=== PATIENT | female | born 1995 | race American Indian/Alaskan Native ===

== ENCOUNTER 2019-02-12 21:00 | Inpatient (IN) | payer OTHER ==
[~2019-02-12] VITALS: Ht 167.6 cm; Wt 74.3 kg
[2019-02-12 21:20] VITALS: BP 132/86
[2019-02-12] MEDS ORDERED: PRENTAB55 PO (21:26)
[2019-02-12] MEDS ORDERED: LACTATED RINGER'S 1000 ML IV STA (23:28)
[2019-02-12] MEDS ORDERED: PENICILLIN G POTASSIUM IV 5 MU in D5W MINI-BAG PLUS 100 ML IV STA (23:28)
[2019-02-12 23:34] VITALS: BP 146/92
--- NOTE | 2019-02-12 23:39 | NUR ---
Obstetrical History & Physical General Date of Admission Feb 12, 2019 at 23:32 History of Present Illness Sharon is a 23 y/o G1 at 38+6 weeks via 13+3 week US who presents for progressively strong and frequent ctx since 1900 earlier this evening. She reports + bloody show, endorses excellent FM and denies LOF. Preg c/b RH neg-received RhoGAM at 28 weeks and GBS + carrier. Chief Complaint: CTX, term Information Provided By: Patient Dating Final EDC by: US at 13+3 weeks Past Medical History Past Obstetrical History : Past Obstetrical History: G1 Type of Delivery: [employer] COORDINATOR History: No pertinent history Past Medical History Medical History: denies Surgical History: denies Family History Significant Family History: No pertinent family hx Social History Marital Status: Family situation: Spouse/partner home Psychosocial History: No pertinent psych hx * Smoker: non-smoker Alcohol: denies Drugs: denies Abuse Violence Screening Have you been hit/kicked/slapp: No Have you been sexually assault: No Imunizations Tdap status: current Allergies Coded Allergies: NKDA Physical Examination Physical Examination GENERAL: Alert and oriented times three. PUL: CTAB CV: RRR ABDOMEN: Gravid and non-tender to touch. FETUS: Is vertex (VTX) by sterile vaginal examination (SVE), 5/80/-2, vtx well applied, BBOW EXTREMITIES: No edema. Laboratory Data LABS-pending in [place] Pertinent Laboratoy Data Blood Type: 0- RBC Antibody Screen: Negative HIV: Negative Hepatitis B: Negative Hepatitis C: Unknown Rapid Plasma Reagin: Nonreactive Rubella: Immune Varicella: Immune Chlamydia/Gonorrhea: Negative Group B Streptococcus: Positive Quad Screen Test: Unknown Cystic Fibrosis: Unknown Glucose Tolerance Test: 92 Anatomy Ultrasound Placenta Location: Anterior Normal Anatomy: Yes Placenta Previa: No Assessment Variability: Moderate Accelerations: Positive Decelerations: None Tocometer Contractions: No Assessment/Plan Assessment 23 y/o G1 at 38+6 weeks via 13+3 week US. Uncomplicated . Active phase labor. CAT 1 FHR. GBS +. Plan Admit and orient. Bid Clerk and consent. Diet: clears Group B Streptococcus (GBS) pos, PCN per SOP Labs and intravenous (IV) per unit protocol. Lactated Ringers (LR): 125 mL/hr. Anticipate normal spontaneous delivery () MEHDI per patient request for labor anesthesia.
[2019-02-13] VITALS (27 sets, daily range): BP systolic 110–162; BP diastolic 59–101
[2019-02-13 00:23] LABS: HEMATOCRIT 39.7 % (36.0-47.0); HEMOGLOBIN 13.7 g/dl (12.0-15.5); MEAN CORPUSCULAR HEMOGLOBIN 31.7 pg (27.0-33.0); MEAN CORPUSCULAR HGB CONC 34.5 g/dl (32.0-36.5); MEAN CORPUSCULAR VOLUME 91.9 fl (80.0-96.0); PLATELET COUNT, AUTOMATED 217 10^3/uL (150-450); RED BLOOD COUNT 4.32 10^6/uL (4.00-5.40); WHITE BLOOD COUNT 14.8 10^3/uL (4.0-10.0)
[2019-02-13] MEDS ORDERED: FENTANYL 2MCG/ML ROPIVACAINE 0.2% IN 0.9% NACL 100ML IVBAG As Ordered ONE (00:34)
[2019-02-13] MEDS: LR 1,000 ML IV SCH ×2 (01:12→06:30)
[2019-02-13] MEDS ORDERED: ONDANSETRON 4MG/2ML VIAL (J2405) IV PRN ×2 (01:15→08:30)
[2019-02-13] MEDS ORDERED: ePHEDrine SULFATE 25 MG/5 ML(5MG/ML) SYRINGE IV PRN (01:15)
[2019-02-13] MEDS ORDERED: NALOXONE INJ 0.4 MG/1 ML VIAL (J2310) IV PRN (01:15)
[2019-02-13] MEDS ORDERED: diphenhydrAMINE INJ 50MG/ML VIAL (J1200) IV PRN (01:15)
[2019-02-13] MEDS ORDERED: REFRIGERATOR IV KEYS XX PRN (01:15)
[2019-02-13] MEDS ORDERED: FENTANYL/ROPIVACAINE/NACL BAG 100 ML EPIDURAL SCH (01:15)
[2019-02-13] MEDS ORDERED: EPIDURAL COMMENT XX SCH (01:15)
[2019-02-13] MEDS ORDERED: LACTATED RINGER'S 1000 ML IV PRN (01:15)
[2019-02-13] MEDS ORDERED: EPIDURAL/PCA KEYS XX PRN (01:15)
[2019-02-13] MEDS ORDERED: PENICILLIN G POTASSIUM IV 2.5 MU in APPROPRIATE DILUENT 1 EA IV SCH (04:00)
--- NOTE | 2019-02-13 05:15 | NUR ---
S: CNM to bs for re-assessment. Pt resting on right side w/ eyes closed and peanut ball. Spouse present at bs. Pt denies questions/concerns regarding labor and possible augmentation with oxytocin. She denies pain since MEHDI placement. O: VSS/AF A&Ox3, NAD; coping well ABD: Gravid; relaxed uterine resting tone EXT: neg homans FHR: 130, moderate variability, + accelerations, no accelerations prior to AROM; one variable following amniotomy. TOCO: ctx of mild-mod intensity q 2-5minutes; irregular pattern SCE: 6/100/-1,vtx, BBOW-amniotomy with clear fluid noted A/P: This is a 23 y/o G1 at 39 weeks via 13 week US. Protracted active phase of labor. CAT I FHR w/ times of intermittent CAT II for minimal variability/variable decel. Amniotomy performed for labor augmentation. May further augment with oxytocin as needed. GBS + and 2 doses of PCN prophylaxis has been administered. Safe to proceed. I anticipate today.
[2019-02-13] MEDS ORDERED: OXYTOCIN 30 UNITS IN 0.9% NaCl 500ML IV BAG (J2590) As Ordered ONE (06:34)
[2019-02-13] MEDS ORDERED: OXYTOCIN DRIP 30 UNITS in APPROPRIATE DILUENT 1 EA IV SCH (08:20)
[2019-02-13] MEDS ORDERED: MEASLES,MUMPS,RUBELLA VACCINE INJ (MMR-II) (90707) SC SCH (08:30)
[2019-02-13] MEDS ORDERED: METHYLERGONOVINE MALEATE 0.2 MG TAB PO PRN (08:30)
[2019-02-13] MEDS ORDERED: ACETAMINOPHEN 500 MG TAB PO PRN (08:30)
[2019-02-13] MEDS ORDERED: DOCUSATE SODIUM 100 MG CAP PO PRN (08:30)
[2019-02-13] MEDS ORDERED: DIBUCAINE 1% OINTMENT 30GM TOP PRN (08:30)
[2019-02-13] MEDS ORDERED: MOM 30ML SUSPENSION UDC PO PRN (08:30)
[2019-02-13] MEDS ORDERED: IBUPROFEN 800 MG TAB PO PRN (08:30)
--- NOTE | 2019-02-13 08:36 | NUR ---
[facility] L&D Delivery Summary Called to BS by nursing staff as patient verbalizes strong urge to push. SCE: C/C+2. After a few strong maternal pushing efforts vertex delivered OA and restituted LOT. Right anterior shoulder followed by left shoulder and corpus with ease. Placed on maternal abdomen for [id number] and assessments. 3V cord double clamped and cut by patient after 2 minutes for delayed cessation of pulsation. With gentle traction on cord placenta delivered Andino and was intact on inspection. Following delivery of placenta; oxytocin bolus administered for active management of the 3rd stage. FF @U-3. Vagina, cervix and perineum inspected for lacerations. Multiple abraisons present on labia and near posterior fourchette. All hemostatic and no indication for repair. Counts correct w/ primary RN x2. Mom and babe bonding and in stable condition when I left the room.
--- NOTE | 2019-02-13 08:38 | NUR ---
[facility] L&D ADDITION to Delivery note DEL: [id number], female PLAC: [id number] LAC: None ANESTHESIA: MEHDI EBL: 300 : 9/9 WEIGHT: 6lb 8oz
[2019-02-13] MEDS: PRENATAL VITAMINS CHEWABLE TABLET PO SCH (10:42)
[2019-02-13] MEDS: RHOGAM 300 MCG (1500 IU) INJ (J2790) IM SCH (23:03)
[2019-02-14 06:00] VITALS: BP 126/90
--- NOTE | 2019-02-14 07:43 | IPNPDOC ---
Progress Note Date of Service: Feb 14, 2019 Progress Note Sharon is a 23 yo G1 now P1 who underwent an uncomplicated on 13Feb2019 in the morning after being admitted for active labor. Ms. Guillory reports feeling well this morning. She is ambulating, voiding, tolerating a regular diet. She has minimal lochia. Denies fevers/chills, SOB, chest pain, dysuria. Vitals - VSS, afebrile, normotensive, non tachycardic General - AAOX3, sitting up in bed, NAD Abdomen - Fundus firm at U-1. No fundal tenderness. Extremities - No edema Ms. Guillory is doing well and is making an appropriate recovery. Continue to encourage ambulation and . Continue routine care. Anticipate DC home tomorrow. DO Khari VS, I&O, 24H, Fishbone Vital Signs/I&O Vital Signs Date Time Temp Pulse Resp B/P (MAP) Pulse Ox O2 Delivery O2 Flow Rate FiO2 02/14/19 06:00 98.3 82 18 126/90 (102) I&O- Last 24 Hours up to 6 AM 02/14/19 06:00 Intake Total 3380.7 ml Output Total 1250 ml Balance 2130.7 ml NOHEMY GEORGES DO Feb 14, 2019 07:43
[2019-02-14] MEDS: PRENATAL VITAMINS CHEWABLE TABLET PO SCH (08:56)
[2019-02-14] MEDS: RHOGAM 300 MCG (1500 IU) INJ (J2790) IM SCH (10:20)
[2019-02-14 17:59] VITALS: BP 128/76
[2019-02-15 06:00] VITALS: BP 118/79
--- NOTE | 2019-02-15 07:17 | IPNPDOC ---
Text Note Date of Service The patient was seen on 02/15/19. NOTE PPD2 States feeling well, pain controlled with prescribed meds. Baby bonding and feeding well. No heavy VB. Lochia slowing. Ambulatory. Tolerating PO without issues. Voiding spont. No CP/LP/SOB. VSSAF NAD A&O LE no C/C/E Ut at U-2, firm a/p: Doing well. Cont routine care. D/C today. Sessions VSNereida, I+O VSNereida, I+O Vital Signs Date Time Temp Pulse Resp B/P (MAP) Pulse Ox O2 Delivery O2 Flow Rate FiO2 02/15/19 06:00 97.4 84 16 118/79 (92) 97 SESSIONS,IRLANDA Ceron MD Feb 15, 2019 07:17
--- NOTE | 2019-02-15 07:18 | DS.PDOC ---
Discharge Summary General Date of Admission Feb 12, 2019 at 23:30 Date of Discharge [id number] Discharge Summary ADMITTING DIAGNOSES: Active labor, SROM DISCHARGE DIAGNOSES: Same, HOSPITAL COURSE: Admitted and delivery uncomplicated, . course uncomplicated. DISCHARGE MEDICATIONS: Motrin, Lanolin DISCHARGE INSTRUCTIONS: Nothing in the vagina for 6 weeks. F/U in OBGYN clinic in 6-8 weeks. Sessions Vital Signs/I&Os Vital Signs Date Time Temp Pulse Resp B/P (MAP) Pulse Ox O2 Delivery O2 Flow Rate FiO2 02/15/19 06:00 97.4 84 16 118/79 (92) 97 Discharge Medications Scheduled Tab281/Iron Fum/Folic/Docusate ( 19 Tablet) 1 Tab Tab, 1 TAB PO DAILY, (Reported) Allergies Coded Allergies: No Known Allergies (Unverified , 02/12/19) SESSIONS,IRLANDA Ceron MD Feb 15, 2019 07:18
[2019-02-15] MEDS: PRENATAL VITAMINS CHEWABLE TABLET PO SCH (07:22)
[2019-02-15] MEDS ORDERED: MAPA500T2 PO (07:29)
[2019-02-15] MEDS ORDERED: IBUP-1114 PO (07:29)
== END 2019-02-15 11:40 | disposition home or self-care (01) | DRG 807 ==
LOC: M LDO 21:00 → M LDI 23:30 → M OBS 02-13 10:56
PROVIDERS: ADMIT Advanced Practice Midwife; ATTEND Advanced Practice Midwife
PROC: 10E0XZZ Delivery of Products of Conception, External Approach (ICD-10-PCS; principal; 2019-02-13)
DX: O80 Encounter for full-term uncomplicated delivery (principal); Z37.0 Single live birth; Z3A.38 38 weeks gestation of pregnancy